=== PATIENT | male | born 1960 | race Caucasian/White ===

== ENCOUNTER 2021-01-18 11:43 | Emergency (ER) | payer OTHER ==
[2021-01-18 12:02] VITALS: TEMP 97.9; BMI 27.6
[2021-01-18] MEDS ORDERED: ACETAMINOPHEN 1000 MG/100 ML VIAL (NON FORMULARY) IVPB ONE (12:25)
[2021-01-18] MEDS ORDERED: ACETAMINOPHEN INJECTION 100 ML IVPB ONE (13:03)
[2021-01-18 13:50] LABS: EOS % 1.6 % (0-4.5); HEMATOCRIT 42.2 % (35.4-49); HEMOGLOBIN 14.7 GM/dL (11.7-16.9); LYMPH % 23.5 % (8-40); MCH 31.5 pg (25.7-33.7); MCHC 34.7 g/dl (32.0-35.9); MEAN CELL VOLUME 90.7 fl (80-96); MEAN PLT VOLUME 8.3 fl (7.5-11.1); MONO % 12.1 % (3.8-10.2); NEUT % 61.8 % (42.8-82.8); PLATELET COUNT 312 K/MM3 (134-434); RBC 4.66 M/mm3 (4.00-5.60); RDW 13.2 % (11.9-15.9); WHITE BLOOD COUNT 5.8 K/mm3 (4.0-10.0)
[2021-01-18 13:54] LABS: INR 1.16 (0.83-1.09)
[2021-01-18 13:57] LABS: ACTIVATED PTT 30.1 SECONDS (25.2-36.5)
[2021-01-18 14:07] LABS: URINE APPEARANCE CLEAR; URINE BILIRUBIN NEGATIVE (NEGATIVE); URINE COLOR YELLOW; URINE GLUCOSE (UA) NEGATIVE (NEGATIVE); URINE KETONE NEGATIVE (NEGATIVE); URINE LEUK ESTERASE NEGATIVE (NEGATIVE); URINE NITRITE NEGATIVE (NEGATIVE); URINE PROTEIN NEGATIVE (NEGATIVE); URINE UROBILINOGEN 0.2 mg/dL (0.2-1.0)
[2021-01-18 14:14] LABS: CHLORIDE 101 mmol/L (98-107); SODIUM 133 mmol/L (136-145)
[2021-01-18 14:18] LABS: ALBUMIN 3.9 g/dl (3.4-5.0); CALCIUM 9.1 mg/dL (8.5-10.1)
[2021-01-18 14:19] LABS: ANION GAP 8 MMOL/L (8-16); BLOOD UREA NITROGEN 12.4 mg/dL (7-18); CO2 24 mmol/L (21-32); GLUCOSE,RANDOM 99 mg/dL (74-106); LIPASE 109 U/L (73-393)
[2021-01-18 14:21] LABS: SGPT/ALT 42 U/L (13-61)
[2021-01-18 14:22] LABS: CREATININE 0.7 mg/dL (0.55-1.3); SGOT/AST 22 U/L (15-37)
[2021-01-18 14:23] LABS: BILIRUBIN,TOTAL 0.6 mg/dL (0.2-1); TOT PROT 8.1 g/dl (6.4-8.2)
[2021-01-18 14:24] LABS: ALK PHOS 110 U/L (45-117)
[2021-01-18 15:43] VITALS: BP 149/90; PULSE 68
== END 2021-01-18 18:58 | disposition home or self-care (01) ==
LOC: JER 11:43
PROC: 3E033GC Introduction of Other Therapeutic Substance into Peripheral Vein, Percutaneous Approach (ICD-10-PCS; principal; 2021-01-18)
DX: K80.20 Calculus of gallbladder without cholecystitis without obstruction (principal)
CPT/HCPCS: 36415; 71046-TC-FY; 74177-TC; 76705-TC; 80053; 81003; 82550; 82553; 83605; 83690; 84484; 85025; 85610; 85730; 86850; 86900; 86901; 87086; 93005; 93010; 99285-25; J0131; Q9967

== ENCOUNTER 2023-02-28 12:14 | Inpatient (IN) | payer OTHER ==
[2023-02-28] MEDS ORDERED: ACETAMINOPHEN 1000 MG/100 ML BAG IVPB ONE ×2 (12:56→20:50)
[2023-02-28] MEDS ORDERED: SODIUM CHLORIDE 0.9% 500 ML INFUS.BAG IV ONE (12:56)
[2023-02-28] MEDS ORDERED: FAMOTIDINE 20 MG/50 ML IVPB 20 MG/50 ML MG IVPB ONE ×2 (12:56→13:16)
[2023-02-28] MEDS ORDERED: MAG HYDROX/AL HYDROX/SIMETH -MYLANTA- ORAL SUSPENSION PO ONE (12:56)
[2023-02-28] MEDS ORDERED: ONDANSETRON 4 MG/2 ML VIAL IVPUSH ONE (12:57)
[2023-02-28] MEDS ORDERED: ACETAMINOPHEN INJECTION 100 ML IVPB ONE ×2 (13:16→20:57)
[2023-02-28] MEDS ORDERED: ONDANSETRON 4 MG/2 ML VIAL ONE (13:16)
[2023-02-28] MEDS ORDERED: MAG HYDROX/AL HYDROX/SIMETH 30 ML UNIT-DOSE CUP ONE (13:16)
[2023-02-28 14:00] LABS: HEMATOCRIT 44.2 % (35.4-49); HEMOGLOBIN 15.1 GM/dL (11.7-16.9); MCH 30.2 pg (25.7-33.7); MCHC 34.2 g/dl (32.0-35.9); MEAN CELL VOLUME 88.5 fl (80-96); MEAN PLT VOLUME 8.7 fl (7.5-11.1); RBC 4.99 M/mm3 (4.00-5.60); RDW 13.3 % (11.9-15.9); WHITE BLOOD COUNT 6.9 K/mm3 (4.0-10.0)
[2023-02-28 14:19] LABS: POTASSIUM 4.6 mmol/L (3.5-5.1)
[2023-02-28 14:21] LABS: CALCIUM 9.9 mg/dL (8.5-10.1)
[2023-02-28 14:22] LABS: ALBUMIN 4.2 g/dl (3.4-5.0); BLOOD UREA NITROGEN 15.9 mg/dL (7-18)
[2023-02-28 14:25] LABS: CREATININE 0.8 mg/dL (0.55-1.3)
[2023-02-28 14:26] LABS: ANISOCYTOSIS 0; BILIRUBIN,TOTAL 0.4 mg/dL (0.2-1); HELMET CELLS 0; HOWELL-JOLLY BODIES 0; MACROCYTOSIS 0; OVALOCYTE 0; ROULEAU 0; SICKELED CELLS 0; TARGET CELLS 0; TEAR DROP CELLS 0; TOXIC GRANULATION 0
[2023-02-28 14:27] LABS: TOT PROT 8.5 g/dl (6.4-8.2)
[2023-02-28 14:29] LABS: PLATELET COUNT 305 10^3/uL (134-434)
[2023-02-28] MEDS ORDERED: morphine CARPU-JECT 2 MG/1 ML DISP.SYRIN IVPUSH ONE (14:43)
[2023-02-28 15:34] LABS: INR 1.14 (0.83-1.09); PROTHROMBIN TIME (PATIENT) 13.2 SEC (9.7-13.0)
[2023-02-28 15:36] LABS: ACTIVATED PTT 30.1 SECONDS (25.2-36.5)
[2023-02-28] MEDS ORDERED: morphine CARPU-JECT 4 MG/1 ML DISP.SYRIN IVPUSH ONE (20:29)
[2023-03-01] MEDS ORDERED: DEXTROSE 5%-0.45% SALINE 1,000 ML IV SCH (01:45)
[2023-03-01] MEDS ORDERED: ONDANSETRON 4 MG/2 ML VIAL IVPUSH PRN (01:46)
[2023-03-01 01:56] VITALS: BMI 24.9
[2023-03-01 09:22] LABS: BASO % 0.2 % (0-2.0); EOS % 0.1 % (0-4.5); HEMATOCRIT 41.5 % (35.4-49); LYMPH % 9.8 % (8-40); MCH 30.3 pg (25.7-33.7); MCHC 33.8 g/dl (32.0-35.9); MEAN CELL VOLUME 89.7 fl (80-96); MEAN PLT VOLUME 8.8 fl (7.5-11.1); MONO % 11.3 % (3.8-10.2); NEUT % 78.6 % (42.8-82.8); PLATELET COUNT 250 10^3/uL (134-434); RBC 4.63 M/mm3 (4.00-5.60); RDW 12.5 % (11.9-15.9); WHITE BLOOD COUNT 8.1 K/mm3 (4.0-10.0)
[2023-03-01] MEDS: DEXTROSE 5%-NORMAL SALINE 1,000 ML IV SCH (17:13)
[2023-03-01] MEDS ORDERED: METOCLOPRAMIDE HCL INJECTION 10 MG/2 ML VIAL IVPUSH PRN (18:01)
[2023-03-01] MEDS ORDERED: SODIUM PHOSPHATE/NA BIPHOS 133 ML ENEMA RC ONE (18:02)
[2023-03-01] MEDS: PANTOPRAZOLE SODIUM 40 MG VIAL IVPUSH SCH (18:56)
[2023-03-01] MEDS: METOCLOPRAMIDE HCL INJECTION 10 MG/2 ML VIAL IVPUSH SCH (18:57)
[2023-03-02] MEDS: METOCLOPRAMIDE HCL INJECTION 10 MG/2 ML VIAL IVPUSH SCH ×3 (02:32→17:41)
[2023-03-02 08:23] LABS: POTASSIUM 3.5 mmol/L (3.5-5.1)
[2023-03-02 08:29] LABS: BLOOD UREA NITROGEN 7.2 mg/dL (7-18); CALCIUM 9.2 mg/dL (8.5-10.1)
[2023-03-02 08:30] LABS: ALBUMIN 3.5 g/dl (3.4-5.0)
[2023-03-02 08:32] LABS: CREATININE 0.8 mg/dL (0.55-1.3)
[2023-03-02 08:33] LABS: BILIRUBIN,TOTAL 0.8 mg/dL (0.2-1); TOT PROT 7.4 g/dl (6.4-8.2)
[2023-03-02] MEDS: PANTOPRAZOLE SODIUM 40 MG VIAL IVPUSH SCH (10:03)
[2023-03-02] MEDS ORDERED: SENNOSIDES 8.6MG TABLET (FP) PO PRN (12:48)
[2023-03-02] MEDS: LOSARTAN POTASSIUM 25 MG TABLET PO SCH (13:06)
[2023-03-02] MEDS: DEXTROSE 5%-NORMAL SALINE 1,000 ML IV SCH ×2 (17:40→21:43)
[2023-03-02] MEDS ORDERED: DOCUSATE SODIUM 100 MG CAPSULE (FP) PO SCH (22:00)
[2023-03-03] MEDS: METOCLOPRAMIDE HCL INJECTION 10 MG/2 ML VIAL IVPUSH SCH ×3 (03:05→18:48)
[2023-03-03] MEDS: DEXTROSE 5%-NORMAL SALINE 1,000 ML IV SCH ×3 (09:38→18:57)
[2023-03-03] MEDS: LOSARTAN POTASSIUM 25 MG TABLET PO SCH (09:41)
[2023-03-03] MEDS: PANTOPRAZOLE SODIUM 40 MG VIAL IVPUSH SCH (09:42)
[2023-03-03] MEDS ORDERED: PROPOFOL 40 ML ONE (12:21)
[2023-03-03] MEDS ORDERED: HYDROmorphone HCl 2 MG/ML VIAL ONE (12:21)
[2023-03-03] MEDS ORDERED: MIDAZOLAM HCL 2 MG/2 ML SINGLE DOSE VIAL ONE (12:22)
[2023-03-03] MEDS ORDERED: SUGAMMADEX SODIUM 200 MG/2 ML VIAL ONE (12:22)
[2023-03-03] MEDS ORDERED: ROCURONIUM BROMIDE 50 MG/5 ML SYRINGE ONE (12:22)
[2023-03-03] MEDS ORDERED: BUPIVACAINE HCL/PF 0.25% (2.5MG/ML) 10 ML VIAL IJ ONE (12:28)
[2023-03-03] MEDS ORDERED: SUCCINYLCHOLINE CHLORIDE 200 MG/10 ML SYRINGE ONE (12:35)
[2023-03-03] MEDS ORDERED: ceFAZolin SODIUM 1 GM VIAL IVPB ONE (13:13)
[2023-03-03] MEDS ORDERED: ESMOLOL HCL 100,000 MCG/10 ML VIAL ONE (13:19)
[2023-03-03] MEDS ORDERED: INDOCYANINE GREEN 25 MG/10 ML VIAL IVPUSH ONE (13:45)
[2023-03-03] MEDS ORDERED: oxyCODONE HCL 5 MG TABLET PO PRN ×3 (16:43→17:05)
[2023-03-03] MEDS ORDERED: LACTATED RINGERS SOLUTION 1,000 ML IV SCH (17:00)
[2023-03-03] MEDS ORDERED: SENNOSIDES 8.6MG TABLET (FP) PO PRN (17:05)
[2023-03-03] MEDS ORDERED: ONDANSETRON 4 MG/2 ML VIAL IVPUSH PRN (17:05)
[2023-03-03] MEDS ORDERED: ACETAMINOPHEN INJECTION 100 ML IVPB ONE (17:57)
[2023-03-03] MEDS: ACETAMINOPHEN 1000 MG/100 ML BAG IVPB SCH ×2 (18:00→23:29)
[2023-03-03] MEDS: DOCUSATE SODIUM 100 MG CAPSULE (FP) PO SCH (23:29)
[2023-03-04] MEDS: METOCLOPRAMIDE HCL INJECTION 10 MG/2 ML VIAL IVPUSH SCH ×3 (02:34→17:28)
[2023-03-04] MEDS: ACETAMINOPHEN 1000 MG/100 ML BAG IVPB SCH ×2 (04:58→11:08)
[2023-03-04 06:00] VITALS: RESP 18
[2023-03-04 08:03] LABS: BASO % 0.1 % (0-2.0); HEMATOCRIT 36.2 % (35.4-49); HEMOGLOBIN 12.4 GM/dL (11.7-16.9); LYMPH % 9.1 % (8-40); MCH 30.3 pg (25.7-33.7); MCHC 34.2 g/dl (32.0-35.9); MEAN CELL VOLUME 88.6 fl (80-96); MEAN PLT VOLUME 8.5 fl (7.5-11.1); MONO % 11.6 % (3.8-10.2); NEUT % 79.2 % (42.8-82.8); PLATELET COUNT 244 10^3/uL (134-434); RBC 4.09 M/mm3 (4.00-5.60); RDW 12.7 % (11.9-15.9)
[2023-03-04 08:14] LABS: POTASSIUM 3.1 mmol/L (3.5-5.1)
[2023-03-04 08:29] LABS: CALCIUM 8.7 mg/dL (8.5-10.1)
[2023-03-04 08:30] LABS: BLOOD UREA NITROGEN 8.6 mg/dL (7-18)
[2023-03-04 08:33] LABS: CREATININE 0.6 mg/dL (0.55-1.3); TOT PROT 6.1 g/dl (6.4-8.2)
[2023-03-04 08:35] LABS: BILIRUBIN,TOTAL 0.4 mg/dL (0.2-1)
[2023-03-04 08:46] LABS: ALBUMIN 2.8 g/dl (3.4-5.0)
[2023-03-04] MEDS: LOSARTAN POTASSIUM 25 MG TABLET PO SCH (09:45)
[2023-03-04] MEDS: PANTOPRAZOLE SODIUM 40 MG VIAL IVPUSH SCH (09:46)
[2023-03-04] MEDS: DEXTROSE 5%-NORMAL SALINE 1,000 ML IV SCH (10:46)
[2023-03-04] MEDS ORDERED: POTASSIUM CHLORIDE ORAL LIQUID 20 MEQ/15 ML PO ONE (16:23)
[2023-03-04] MEDS ORDERED: DEXTROSE 5%-NORMAL SALINE 995 ML with POTASSIUM CHLORIDE 10 MEQ IV SCH (16:25)
[2023-03-04] MEDS ORDERED: KCL 10 MEQ IVPB 10 MEQ/100 ML INFUS.BAG IVPB SCH (16:30)
[2023-03-04] MEDS ORDERED: POTASSIUM CHLORIDE 10 MEQ in DEXTROSE 5%-NORMAL SALINE 995 ML IV SCH ×2 (16:35→17:20)
[2023-03-04] MEDS: DOCUSATE SODIUM 100 MG CAPSULE (FP) PO SCH (21:35)
[2023-03-05] MEDS: METOCLOPRAMIDE HCL INJECTION 10 MG/2 ML VIAL IVPUSH SCH ×2 (01:40→10:55)
[2023-03-05 08:57] LABS: POTASSIUM 3.3 mmol/L (3.5-5.1)
[2023-03-05 08:59] LABS: BLOOD UREA NITROGEN 5.7 mg/dL (7-18); CALCIUM 8.6 mg/dL (8.5-10.1)
[2023-03-05 09:02] LABS: CREATININE 0.6 mg/dL (0.55-1.3)
[2023-03-05 09:04] LABS: BILIRUBIN,TOTAL 0.6 mg/dL (0.2-1); TOT PROT 6.5 g/dl (6.4-8.2)
[2023-03-05 10:54] VITALS: BP 151/88; PULSE 69; TEMP 98.2
[2023-03-05] MEDS: PANTOPRAZOLE SODIUM 40 MG VIAL IVPUSH SCH (10:55)
[2023-03-05] MEDS: LOSARTAN POTASSIUM 25 MG TABLET PO SCH (10:55)
[2023-03-05] MEDS ORDERED: KCL 10 MEQ IVPB 10 MEQ/100 ML INFUS.BAG IVPB SCH (13:00)
[2023-03-05] MEDS ORDERED: POTASSIUM CHLORIDE TABS 10 MEQ TABLET.ER (FP) PO ONE (13:00)
== END 2023-03-05 14:46 | disposition home or self-care (01) | DRG 263 ==
LOC: JER 12:14 → JERBED 22:18 → J7W 03-01 02:16
PROVIDERS: ADMIT Internal Medicine; ATTEND Internal Medicine
PROC: 0FT44ZZ Resection of Gallbladder, Percutaneous Endoscopic Approach (ICD-10-PCS; principal; 2023-03-03 13:00)
DX: K80.00 Calculus of gallbladder with acute cholecystitis without obstruction (principal); I10 Essential (primary) hypertension; K21.9 Gastro-esophageal reflux disease without esophagitis; K70.30 Alcoholic cirrhosis of liver without ascites; E87.6 Hypokalemia; K29.70 Gastritis, unspecified, without bleeding; E87.1 Hypo-osmolality and hyponatremia; K59.00 Constipation, unspecified
CPT/HCPCS: 36415; 71045-TC-FY; 74019-TC-FY; 74177-TC; 76000-TC-FY; 76705-TC; 78226-TC; 80053; 82105; 83690; 84484; 85025; 85610; 85730; 88304-TC; 93005; 93010; 94010; 94760; 97116-GP; 97162-GP; 99285-25; A9537; Q9967